=== PATIENT | male | born 1975 | race Caucasian/White ===

== ENCOUNTER → 2023-07-02 13:32 | Outpatient (REF) | payer SELFPAY | LOC: HWRAD 13:32 | PROVIDERS: ATTENDING PHYSICIAN Family Medicine | DX: E78.2 Mixed hyperlipidemia (principal) | CPT/HCPCS: 75571 ==

== ENCOUNTER → 2023-07-02 13:37 | Outpatient (REF) | payer OTHER, SELFPAY | LOC: HWRAD 13:37 | PROVIDERS: ATTENDING PHYSICIAN Family Medicine | DX: R05.9 Cough, unspecified (principal) | CPT/HCPCS: 71046 ==